=== PATIENT | male | born 1960 | race Caucasian/White ===

== ENCOUNTER → 2018-06-12 07:26 | Outpatient (CLI) | payer OTHER, SELFPAY ==
--- NOTE | 2018-06-12 | DI.MRI.S_ITS ---
PROCEDURE: MR SHOULDER RT WO/W CON INDICATIONS: Localized swelling, mass and lump TECHNIQUE: Noncontrast oblique coronal T1 spin echo and T2 fast spin echo with fat saturation, oblique sagittal T1 spin echo and T2 fast spin echo with fat saturation, axial T1 spin echo and T2 fast spin echo with fat saturation through the shoulder. Post-contrast oblique coronal, oblique sagittal, and axial T1 spin echo with fat saturation through the shoulder. COMPARISON: None. FINDINGS: Image quality: Excellent. Rotator cuff: There is tendinosis and moderate grade articular surface partial thickness tear involving distal supraspinatus at its insertion on humeral head extending to the musculotendinous junction with focal full-thickness perforation involving most anterior fibers of the distal supraspinatus at its insertion with minimal 4 mm medial retraction of torn tendon fibers. Tendinosis and low-grade bursal surface partial-thickness tear involving distal subscapularis. Distal infraspinatus tendinosis is also seen. Sagittal images demonsterate mild supraspinatus muscle atrophy. Bones and bursae: No suspicious bone marrow enhancement. Mild to moderate acromioclavicular joint and glenohumeral joint osteoarthritis is seen. Small amount of glenohumeral joint effusion and subacromial subdeltoid bursal fluid is seen. Capsule and soft tissues: No suspicious soft tissue enhancement. In the absence of intra-articular contrast, there is suggestion of superior anterior labral tear at 12 to 2:00 position. There is also suggestion of inferior labral tear at 5 to 6:00 position. The glenohumeral ligaments appear intact. The long head of the biceps tendon demonstrates normal location and morphology. The rotator interval appears normal, without fibrosis. The coracohumeral ligament is normal in thickness. IMPRESSION: 1. Tendinosis and moderately articular surface partial-thickness tear involving distal supraspinatus with focal full-thickness perforation at most anterior fibers of the distal supraspinatus at its insertion on humeral head. Tendinosis and low to moderate grade bursal surface partial-thickness involving distal infraspinatus. This is subscapularis tendinosis. Mild supraspinatus muscle atrophy. 2. Mild to moderate acromioclavicular joint and glenohumeral joint osteoarthritis. 3. Finding is suggestive of superior anterior labral tear from 12 to 2:00 position an anterior inferior labral tear for 5 to 6:00 position. 4. No discrete enhancing soft tissue mass or fluid collection is seen. No intraosseous enhancement. Dictated by: Joesph Garcia M.D. on 06/12/2018 at 12:51 Approved by: Joesph Garcia M.D. on 06/12/2018 at 13:01
== END ==
PROVIDERS: PCP Nurse Practitioner Family; Visit Provider Orthopaedic Surgery
DX: R22.31 Localized swelling, mass and lump, right upper limb (principal); M75.111 Incomplete rotator cuff tear or rupture of right shoulder, not specified as traumatic; M19.011 Primary osteoarthritis, right shoulder
CPT/HCPCS: 73223

== ENCOUNTER → 2018-07-10 09:19 | Outpatient (CLI) | payer OTHER, SELFPAY ==
--- NOTE | 2018-07-10 | DI.MRI.S_ITS ---
PROCEDURE: MR CERVICAL SPINE WO CON INDICATIONS: Cervicalgia TECHNIQUE: Noncontrast sagittal T1 spin echo and T2 fast spin echo, sagittal STIR, foraminal oblique sagittal T2 fast spin echo, and axial gradient echo or T2 fast spin echo through the cervical spine. COMPARISON: None. FINDINGS: Image quality: Excellent. Alignment and Curvature: There is overall straightening of the normal cervical curvature. There is trace retrolisthesis of C5 on C6, trace anterolisthesis of C6 on C7, C7 on T1, T1 on T2. Bone Marrow: Marrow demonstrates normal overall signal. Spinal Cord: Visualized spinal cord has normal size and signal. No cerebellar tonsillar herniation. Paraspinous Soft Tissues: No paravertebral masses. Prevertebral soft tissues are normal in thickness. Discs: Moderate to severe desiccation is present at C5-6 and C6-7, mild throughout the remainder of the cervical spine. C2-C3: No disc bulge, spinal stenosis or foraminal narrowing. C3-C4: I'll disc bulge including a left foraminal component. There are is minimal bilateral foraminal narrowing. C4-C5: Mild disc bulge including a posterior central protrusion with mild spinal stenosis. Minimal left foraminal narrowing. C5-C6: Mild disc bulge including asymmetric extension into the left lateral recess/proximal left neural foramina. Mild to moderate spinal stenosis is moderate left and minimal right foraminal narrowing. C6-C7: Mild disc bulge with mild to moderate spinal stenosis. Mild left foraminal narrowing. C7-T1: No disc bulge, spinal stenosis or foraminal narrowing. IMPRESSION: 1. Multilevel disc bulges. 2. Mild/moderate stenosis predominantly secondary to disc bulges with contributing effect of cervical straightening. 3. Multilevel foraminal narrowing most notable at C5-6. Dictated by: Suzy Rodrigues M.D. on 07/10/2018 at 15:24 Approved by: Suzy Rodrigues M.D. on 07/10/2018 at 15:37
== END ==
PROVIDERS: PCP Nurse Practitioner Family; Visit Provider Orthopaedic Surgery
DX: M54.2 Cervicalgia (principal); M25.511 Pain in right shoulder; M50.21 Other cervical disc displacement, high cervical region; M48.02 Spinal stenosis, cervical region
CPT/HCPCS: 72141

== ENCOUNTER → 2018-10-09 07:51 | Outpatient (CLI) | payer OTHER, SELFPAY ==
--- NOTE | 2018-10-09 | DI.ECHO.S_ITS ---
[facility]---------+ [facility] +---------+ : : [address] : [address] [address] : : : : [id number] : : : : Phone: [phone]+ Echocardiogram Report + + :Name: CARMEL GARCIA Study Date: 10/09/2018 Height: 70 in : :[facility] Weight: 204 lb : : Gender: Male BSA: 2.1 m2 : :: 1960 Age: 57 yrs BP: 122/68 mmHg: :Reason For Study: Chest pain : : Performed By: Sayda Acharya : :Referring: UNSPECIFIED : + + Interpretation Summary Normal both left and right ventricle size and function. The ejection fraction is 60-65%. No valvular abnormality. Mildly enlarged ascending aorta. Procedure: A two-dimensional transthoracic echocardiogram with color flow and Doppler was performed. The study quality was technically good. There is no prior echocardiogram noted for this patient. The patient was in normal sinus rhythm during the exam. Left Ventricle: The left ventricle is normal in size, wall thickness, and systolic function without any focal wall motion abnormalities. The ejection fraction is estimated to be 60-65%. Diastolic parameters suggest probable normal left ventricular diastolic function and normal filling pressures. Right Ventricle: The right ventricle grossly appears normal in size with probable normal systolic function. Atria: The left atrial size is normal. Right atrial size is normal. The interatrial septum is intact with no evidence for an atrial septal defect. Mitral Valve: The mitral valve is normal in structure and function. There is no mitral regurgitation noted. Aortic Valve: The aortic valve opens well. No aortic regurgitation is present. Tricuspid Valve: The tricuspid valve is normal in structure and function. There is trace tricuspid regurgitation. The right ventricular systolic pressure is estimated to be at least 23 mmHg based on an estimated right atrial pressure of 3 mm Hg. Pulmonic Valve: The pulmonic valve is not well seen, but is grossly normal. There is trace pulmonic regurgitation. Great Vessels: The aortic root is normal size. The ascending aorta is mildly enlarged. The aortic arch is normal in size. The IVC is of normal diameter and collapses greater than 50% with a sniff. This suggests a low right atrial pressure of 3 mm Hg. Pericardium/ Pleura There is no pericardial effusion. There is no pleural effusion. MMode/2D Measurements & Calculations LVIDd: 5.1 cm Ao root diam: 3.6 cm LVIDs: 3.1 cm Aortic Jxn: 2.7 cm FS: 38.4 % asc Aorta Diam: 3.8 cm EPSS: 0.26 cm Ao Arch Diam (Prox Trans): 2.9 cm IVSd: 1.2 cm LVPWd: 0.93 cm LV draper. diameter/BSA (cm/m^2): 2.4 LV sys. diameter/BSA (cm/m^2): 1.5 LA dimension: 4.0 cm RA long axis: 4.8 cm LA A2 area: 24.2 cm2 RA area: 18.4 cm2 LA A4 area: 18.6 cm2 RA vol: 59.7 ml LA length (vol): 5.4 cm RA : 28.4 ml/m2 LA vol: 70.6 ml IVC diam: 1.8 cm LA vol index: 33.6 ml/m2 RVDd major: 6.5 cm RVD1 (basal): 4.2 cm RVD2 (mid): 3.4 cm Doppler Measurements & Calculations Ao V2 max: 146.2 cm/sec MV E max felipe: 75.3 cm/sec Ao V2 mean: 96.2 cm/sec MV A max felipe: 55.6 cm/sec Ao max P.5 mmHg MV E/A: 1.4 Ao mean P.3 mmHg Med Peak E' Felipe: 7.4 cm/sec Ao V2 VTI: 30.9 cm E/E' med: 10.2 Lat Peak E' Felipe: 12.6 cm/sec E/E' lat: 6.0 E/e' average: 8.1 MV dec time: 0.24 sec MV P1/2t: 70.8 msec TR max felipe: 222.8 cm/sec MV P1/2t max felipe: 75.0 cm/sec TR max P.9 mmHg MVA(P1/2t): 3.1 cm2 PA V2 max: 110.0 cm/sec PA V2 mean: 73.3 cm/sec PA mean P.5 mmHg PA Accel Time: 0.13 sec Electronically signed by: Patience Fernandez on Reading Physician:10/09/2018 01:17 PM
== END ==
PROVIDERS: PCP Nurse Practitioner Family; Visit Provider Nurse Practitioner Family
DX: R07.9 Chest pain, unspecified (principal); I77.89 Other specified disorders of arteries and arterioles
CPT/HCPCS: 93306

== ENCOUNTER → 2019-06-11 08:15 | Outpatient (CLI) | payer OTHER, SELFPAY ==
--- NOTE | 2019-06-11 | DI.RAD.S_ITS ---
PROCEDURE: FL SHOULDER INJECTION MR/CT LT INDICATIONS: LEFT SHOULDER PAIN TECHNIQUE: The indications, alternatives, benefits, risks, and complications of the procedure were explained to the patient. Written informed consent was obtained and placed in the chart. The shoulder was examined fluoroscopically and a site for needle placement chosen for entry into the glenohumeral joint from an anterior approach. The skin was prepped and draped in a sterile fashion, and 1% lidocaine infiltrated from skin down to joint capsule. A spinal needle was inserted into the glenohumeral joint, and a small amount of iodinated contrast media injected to confirm intra-articular placement of the needle tip. This was followed by approximately 12 mL dilute solution of a gadolinium containing MR contrast agent. The needle was removed and a dressing was applied. The patient was given postprocedural instructions and sent to the MR suite for MR imaging. FINDINGS: A single fluoroscopic spot image demonstrates intra-articular location of injected iodinated contrast. IMPRESSION: Successful fluoroscopically guided administration of dilute Gadolinium solution into the left shoulder joint for MR arthrogram. Dictated by: Roman Coles M.D. on 06/11/2019 at 9:34 Approved by: Roman Coles M.D. on 06/11/2019 at 9:35
--- NOTE | 2019-06-11 | DI.MRI.S_ITS ---
PROCEDURE: MR SHOULDER LT W CON INDICATIONS: LEFT SHOULDER PAIN TECHNIQUE: After the administration of 12 mL of dilute intra-articular Gadolinium contrast, oblique coronal T1 and T2 spin echo with fat saturation, oblique sagittal T1 spin echo with and without fat saturation, oblique sagittal T2 fast spin echo with fat saturation, axial T1 spin echo with fat saturation through the shoulder. COMPARISON: None. FINDINGS: Image quality: Excellent. Rotator cuff: The supraspinatus, infraspinatus, and subscapularis tendons appear intact throughout. There is mild thickening with increased internal signal involving the supraspinatus and subscapularis tendons compatible with mild tendinosis. No rotator cuff muscle atrophy on sagittal images. Bones and bursae: No bone marrow contusions or fractures. Mild acromioclavicular joint osteoarthritic degeneration. The acromion demonstrates conventional anatomy, without an os acromiale. Fluid noted in the subacromial/subdeltoid bursa compatible with mild bursitis. Capsule and soft tissues: There is a large tear involving the superior, anterior and posterior labrum extending from the 2:00 to 9:00 position. The glenohumeral ligaments appear intact. The long head of the biceps tendon demonstrates normal location and morphology. The rotator interval appears normal, without fibrosis. The coracohumeral ligament is of normal thickness. No intra-articular bodies. IMPRESSION: 1. Large labral tear involving the superior, anterior and posterior labrum from 2:00 to 9:00. 2. Mild supraspinatus and subscapularis tendinopathy. 3. Mild subacromial/subdeltoid bursitis. 4. Mild acromioclavicular joint osteoarthritis. Dictated by: Deysi Ernandez MD, PhD on 06/11/2019 at 12:22 Approved by: Deysi Ernandez MD, PhD on 06/12/2019 at 13:07
== END ==
PROVIDERS: PCP Nurse Practitioner Family; Referring Provider Orthopaedic Surgery; Visit Provider Orthopaedic Surgery
DX: M25.512 Pain in left shoulder (principal); S43.432A Superior glenoid labrum lesion of left shoulder, initial encounter; M19.012 Primary osteoarthritis, left shoulder; M75.52 Bursitis of left shoulder
CPT/HCPCS: 23350; 73222; 77002

== ENCOUNTER → 2019-06-18 08:27 | Outpatient (CLI) | payer OTHER, SELFPAY ==
--- NOTE | 2019-06-18 | DI.MRI.S_ITS ---
PROCEDURE: MR SHOULDER RT W CON INDICATIONS: Pain in right shoulder TECHNIQUE: After the administration of 12 mL of dilute intra-articular Gadolinium contrast, oblique coronal T1 and T2 spin echo with fat saturation, oblique sagittal T1 spin echo with and without fat saturation, oblique sagittal T2 fast spin echo with fat saturation, axial T1 spin echo with fat saturation through the shoulder. COMPARISON: None. FINDINGS: Image quality: Excellent. Rotator cuff: There is a high-grade, partial, tear of the supraspinous tendon at the humeral attachment. Multiloculated ganglion cyst seen tracking along the superior margin of the supraspinous tendon. The infraspinatus, and subscapularis tendons appear intact throughout. Mild thickening and slightly increased internal signal noted in the infraspinatus and supraspinatus tendons compatible with mild tendinosis. No rotator cuff muscle atrophy on sagittal images. Bones and bursae: No bone marrow contusions or fractures. Minimal acromioclavicular joint osteoarthritic degeneration. The acromion demonstrates conventional anatomy, without an os acromiale. Fluid is noted in the subacromial/subdeltoid bursa compatible with mild bursitis. Capsule and soft tissues: There is a large tear involving the superior and anterior-superior labrum (10:00-1:00 position). The glenohumeral ligaments appear intact. The long head of the biceps tendon demonstrates normal location and morphology. The rotator interval appears normal, without fibrosis. The coracohumeral ligament is of normal thickness. No intra-articular bodies. No evidence of synovitis. IMPRESSION: 1. Large superior/anterior-superior labral tear. 2. High-grade, partial supraspinatus tendon tear. 3. Mild infraspinatus and subscapularis tendinopathy. Dictated by: Deysi Ernandez MD, PhD on 06/18/2019 at 10:59 Approved by: Deysi Ernandez MD, PhD on 06/19/2019 at 9:59
--- NOTE | 2019-06-18 | DI.RAD.S_ITS ---
PROCEDURE: FL SHOULDER INJECTION MR/CT RT INDICATIONS: Pain in right shoulder TECHNIQUE: The indications, alternatives, benefits, risks, and complications of the procedure were explained to the patient. Written informed consent was obtained and placed in the chart. The shoulder was examined fluoroscopically and a site for needle placement chosen for entry into the glenohumeral joint from an anterior approach. The skin was prepped and draped in a sterile fashion, and 1% lidocaine infiltrated from skin down to joint capsule. A spinal needle was inserted into the glenohumeral joint, and a small amount of iodinated contrast media injected to confirm intra-articular placement of the needle tip. This was followed by approximately 12 mL dilute solution of a gadolinium containing MR contrast agent. The needle was removed and a dressing was applied. The patient was given postprocedural instructions and sent to the MR suite for MR imaging. FINDINGS: A single fluoroscopic spot image demonstrates intra-articular location of injected iodinated contrast. IMPRESSION: Successful fluoroscopically guided administration of dilute Gadolinium solution into the shoulder joint for MR arthrogram. Dictated by: Jovi Medeiros M.D. on 06/18/2019 at 10:54 Approved by: Jovi Medeiros M.D. on 06/18/2019 at 10:54
== END ==
PROVIDERS: PCP Nurse Practitioner Family; Referring Provider Orthopaedic Surgery; Visit Provider Orthopaedic Surgery
DX: M25.511 Pain in right shoulder (principal); M75.111 Incomplete rotator cuff tear or rupture of right shoulder, not specified as traumatic; S43.431A Superior glenoid labrum lesion of right shoulder, initial encounter; M67.411 Ganglion, right shoulder
CPT/HCPCS: 23350; 73222; 77002

== ENCOUNTER → 2023-01-24 10:59 | Outpatient (CLI) | payer OTHER, SELFPAY ==
--- NOTE | 2023-01-24 | DI.MRI.S_ITS ---
PROCEDURE: MR HIP RT WO CON INDICATIONS: Pain in right hip TECHNIQUE: Noncontrast coronal T1 spin echo and STIR through the bony pelvis. Coronal and axial T2 fast spin echo with fat saturation, sagittal T1 spin echo, and oblique axial T2 fast spin echo with fat saturation through the hip. COMPARISON: None. FINDINGS: Image quality: Excellent. Bones and joints: Bone marrow of the pelvic ring and proximal femurs show normal signal throughout. No intraosseous lesions or fractures. No avascular necrosis of the femoral heads. The visualized lower lumbar spine appears normally aligned. There is a small subchondral cyst involving the right femoral neck. Tendons and ligaments: The gluteus medius and minimus tendons appear intact, without associated muscle atrophy. The nearby proximal iliotibial band also appears intact. The iliopsoas tendon appears intact, without adjacent bursal fluid collections or evidence for impingement syndrome. The origin of the hamstring tendon is intact at the ischial tuberosity, as well as the associated sacrotuberous ligament. The straight and reflected heads of the rectus femoris muscle origin appear intact, as well as the conjoint tendon. The ligamentum teres appears intact where visualized. There is no findings of trochanteric bursitis. Labrum and cartilage: The acetabular labrum appears intact in the absence of intra-articular contrast. Cartilage surface of the femoral head appears of normal thickness. The alpha angle of the femur is greater than 55?. No paralabral cyst formation is identified. Soft tissues: Visualized muscles demonstrate normal bulk and internal signal. Quadratus femoris muscle demonstrates no internal edema to suggest ischiofemoral impingement. The proximal sciatic neurovascular bundle appears normal adjacent to the hamstring tendons. No free pelvic fluid. Bladder wall thickness is normal. Genitourinary structures and bowel loops appear normal where visualized. IMPRESSION: 1. 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 and small subchondral cyst formation involving the anterolateral femoral neck. Dictated by: Parrish Viveros M.D. on 01/25/2023 at 8:09 Approved by: Parrish Viveros M.D. on 01/25/2023 at 8:18
== END ==
PROVIDERS: PCP Nurse Practitioner Family; Referring Provider Orthopaedic Surgery; Visit Provider Orthopaedic Surgery
DX: M25.551 Pain in right hip (principal); M85.48 Solitary bone cyst, other site
CPT/HCPCS: 73721

== ENCOUNTER 2023-04-22 14:14 | Emergency (ER) | payer OTHER, SELFPAY ==
[2023-04-22] VITALS (10 sets, daily range): BP systolic 135–152; BP diastolic 67–77; PULSE 59–71; RESP 18–31; TEMP 36.6–37; O2SAT 91–98; BMI 29.8
--- NOTE | 2023-04-22 14:38 | DI.RAD.S_ITS ---
PROCEDURE: XR CHEST 1V INDICATIONS: short of breath TECHNIQUE: One view of the chest was acquired. COMPARISON: None. FINDINGS: Surgical changes and devices: None. Lungs and pleura: Lungs are clear. No pleural effusions or pneumothorax. Mediastinum: Mediastinal contours appear normal. Heart size is normal. Bones and chest wall: No suspicious bony lesions. Overlying soft tissues appear unremarkable. IMPRESSION: No acute cardiopulmonary abnormality is seen. Dictated by: Wade Chu M.D. on 04/22/2023 at 15:56 Approved by: Wade Chu M.D. on 04/22/2023 at 15:56
[2023-04-22 14:53] LABS: Add Manual Diff / Slide Review NO; Basophils Absolute Auto 100 /uL (0-100); Eosinophils Absolute Auto 300 /uL (0-450); Eosinophils Percent Auto 4.3 % (2-4); Hemoglobin 13.9 g/dL (13.5-17.5); Lymphocytes Absolute Auto 1600 /uL (1100-4500); Lymphocytes Percent Auto 21.3 % (25-40); Mean Corpuscular HGB Conc 34.8 % (30-36); Mean Corpuscular Volume 86.1 fL (80-100); Monocytes Absolute Auto 800 /uL (0-900); Neutrophils Absolute Auto 4600 /uL (1500-7000); Neutrophils Percent Auto 62.4 % (50-75); Platelet Count 264 X10^3/uL (150-400); Red Blood Cell Count 4.64 X10^6/uL (4.5-5.9); White Blood Cell Count 7.4 X10^3/uL (4.5-11.0)
[2023-04-22 14:55] LABS: Alanine Aminotransferase 29 IU/L (<50); Albumin 4.3 g/dL (3.5-5.0); Albumin Globulin Ratio 1.3 (1.0-2.8); Alkaline Phosphatase 58 U/L (38-126); Aspartate Aminotransferase 29 IU/L (17-59); BUN Creatinine Ratio 22.4 (6-22); Bilirubin Total 0.5 mg/dL (0.2-1.3); Blood Urea Nitrogen 19 mg/dL (9-20); Calcium 9.4 mg/dL (8.4-10.2); Carbon Dioxide 27 mmol/L (22-32); Chloride 106 mmol/L (98-107); Creatine Kinase 89 U/L (55-170); Estimated Glomerular Filt Rate > 60 mL/min (>60); Globulin 3.4 g/dL (1.7-4.1); Glucose 97 mg/dL (80-110); HEMOLYSIS < 15 (0-50); Lipase 69 U/L (23-300); Sodium 140 mmol/L (137-145); Total Protein 7.7 g/dL (6.3-8.2)
[2023-04-22 15:07] LABS: NT-proBNP (BNP-Adult 18+) 142 pg/mL (<125); Troponin I < 0.012 ng/mL (0.01-0.034)
[2023-04-22 15:55] LABS: Influenza A - CEPHEID Flu A NEGATIVE (NEGATIVE); Influenza B - CEPHEID Flu B NEGATIVE (NEGATIVE); Respiratory Syncytial Virus Negative (Negative)
[2023-04-22 16:06] LABS: COVID-19 CEPHEID 4-PLEX PCR Negative (Negative)
--- NOTE | 2023-04-22 16:42 | ED.SOB ---
HPI - SOB/Dyspnea General Chief Complaint: Shortness of Breath/Dyspnea Stated Complaint: difficulty breathing Time Seen by Provider: 04/22/23 14:38 Source: patient Mode of arrival: Ambulatory Limitations: no limitations History of Present Illness HPI Narrative: Patient is a 62-year-old male history of atrial fibrillation on Eliquis presenting today with increasing shortness of breath. He reports that over the last 2 days he has had some upper respiratory like symptoms sore throat mild body aches no actual fever and he is noted increasing shortness of breath exertion. He denies any lower extremity edema no orthopnea. He has not traveled anywhere recently. He is coughing up some phlegm. He has had colds before but never been this short of breath. He reports a 20 pack-year smoking history but quit in 2009 Exam Initial Vital Signs Initial Vital Signs: Vital Signs Temperature 97.9 F 04/22/23 14:25 Pulse Rate 66 04/22/23 14:25 Respiratory Rate 20 04/22/23 14:25 Blood Pressure 152/72 H 04/22/23 14:25 Pulse Oximetry 98 04/22/23 14:25 Oxygen Delivery Method Room Air 04/22/23 14:25 GENERAL: Alert 62-year-old male appears well and in no acute distress. HEENT: Head atraumatic,EOMI, pupils reactive, face symmetric, moist mucous membranes CARDIOVASCULAR: Regular rate and rhythm without murmurs, rubs or gallops. RESPIRATORY: No conversational dyspnea decreased breath sounds bilaterally ABDOMEN: Soft, nontender. Normoactive bowel sounds all 4 quadrants. No guarding or rebound. EXTREMITIES: Normal range of motion, no clubbing or edema. Neurovascularly intact NEUROLOGICAL: Alert and oriented x4.Normal gait and speech. SKIN: Warm, dry, no laceration, no petechiae, no rashes or lesions. Course Orders Ordered: ED Orders 04/22/23 14:36 Complete Blood Count AUTO DIFF Stat Comprehensive Metabolic Panel Stat Lipase Stat NT-proBNP (BNP-Adult 18+) Stat Troponin & CK Cardiac Panel Stat EKG-12 Lead Stat 04/22/23 14:38 XR chest 1V Stat 04/22/23 15:05 Covid-19 + FLU A/B + RSV - PCR Stat Discontinued Medications Albuterol/Ipratropium (Albuterol/Ipratropium 3 Ml Ampul) 3 ml INH NOW ONE Stop: 04/22/23 16:44 Last Admin: 04/22/23 17:30 Dose: 3 ml Documented By: NL Vital Signs Vital signs: Vital Signs - 8 hr 04/22/23 14:25 04/22/23 15:21 04/22/23 15:30 Temperature 97.9 F Pulse Rate 66 61 Respiratory Rate 20 23 Blood Pressure 152/72 H 136/67 Pulse Oximetry 98 94 Oxygen Delivery Method Room Air 04/22/23 15:30 04/22/23 16:00 04/22/23 16:00 Temperature Pulse Rate 60 59 L Respiratory Rate 23 23 Blood Pressure 147/68 H Pulse Oximetry 93 93 Oxygen Delivery Method 04/22/23 16:30 04/22/23 16:30 04/22/23 17:00 Temperature Pulse Rate 59 L 60 Respiratory Rate 22 21 Blood Pressure 135/68 Pulse Oximetry 94 94 Oxygen Delivery Method 04/22/23 17:30 04/22/23 17:30 04/22/23 17:31 Temperature Pulse Rate 62 61 Respiratory Rate 26 H 26 H Blood Pressure 143/68 H Pulse Oximetry 97 94 Oxygen Delivery Method Room Air 04/22/23 17:31 04/22/23 18:00 04/22/23 18:00 Temperature Pulse Rate 60 69 Respiratory Rate 31 H 18 Blood Pressure 137/77 Pulse Oximetry 95 91 Oxygen Delivery Method 04/22/23 18:13 Temperature 98.6 F Pulse Rate 71 Respiratory Rate 21 Blood Pressure 137/77 Pulse Oximetry 98 Oxygen Delivery Method Room Air MDM - SOB/Dyspnea Lab Data 04/22/23 14:36 04/22/23 14:36 Labs: Lab Results 04/22/23 04/22/23 Range/Units 14:36 15:05 WBC 7.4 (4.5-11.0) X10^3/uL RBC 4.64 (4.5-5.9) X10^6/uL Hgb 13.9 (13.5-17.5) g/dL Hct 40.0 L (41-53) % MCV 86.1 (80-100) fL MCH 30.0 (26-34) PG MCHC 34.8 (30-36) % RDW 13.0 (11.6-14.8) % Plt Count 264 (150-400) X10^3/uL Neut % (Auto) 62.4 (50-75) % Lymph % (Auto) 21.3 L (25-40) % Snyder % (Auto) 11.0 (3-14) % Eos % (Auto) 4.3 H (2-4) % Baso % (Auto) 1.0 (0-2) % Neut # (Auto) 4600 (4733-1859) /uL Lymph # (Auto) 1600 (3498-2419) /uL Snyder # (Auto) 800 (0-900) /uL Eos # (Auto) 300 (0-450) /uL Baso # (Auto) 100 (0-100) /uL Sodium 140 (137-145) mmol/L Potassium 4.0 (3.4-5.1) mmol/L Chloride 106 (98-107) mmol/L Carbon Dioxide 27 (22-32) mmol/L BUN 19 (9-20) mg/dL Creatinine 0.85 (0.66-1.25) mg/dL Estimated GFR > 60 (>60) mL/min BUN/Creatinine Ratio 22.4 H (6-22) Glucose 97 (80-110) mg/dL Calcium 9.4 (8.4-10.2) mg/dL Total Bilirubin 0.5 (0.2-1.3) mg/dL AST 29 (17-59) IU/L ALT 29 (<50) IU/L Alkaline Phosphatase 58 (38-126) U/L Total Creatine Kinase 89 (55-170) U/L Troponin I < 0.012 (0.01-0.034) ng/mL NT-Pro-B Natriuret Pep 142 H (<125) pg/mL Total Protein 7.7 (6.3-8.2) g/dL Albumin 4.3 (3.5-5.0) g/dL Globulin 3.4 (1.7-4.1) g/dL Albumin/Globulin Ratio 1.3 (1.0-2.8) Lipase 69 (23-300) U/L SARS-CoV-2 (PCR) Negative (Negative) Influenza A (RT-PCR) Flu a negative (NEGATIVE) Influenza B (RT-PCR) Flu b negative (NEGATIVE) RSV (PCR) Negative (Negative) Imaging Data Chest x-ray: Radiologist's Impression: PROCEDURE: XR CHEST 1V INDICATIONS: short of breath TECHNIQUE: One view of the chest was acquired. COMPARISON: None. FINDINGS: Surgical changes and devices: None. Lungs and pleura: Lungs are clear. No pleural effusions or pneumothorax. Mediastinum: Mediastinal contours appear normal. Heart size is normal. Bones and chest wall: No suspicious bony lesions. Overlying soft tissues appear unremarkable. IMPRESSION: No acute cardiopulmonary abnormality is seen. Dictated by: Wade Chu M.D. on 04/22/2023 at 15:56 ECG Data Interpretation: Normal sinus rhythm rate 58 MD interval 170 QRS 96 QTC 392 T-wave inversion noted in lead [address] changes MDM Narrative Medical decision making narrative: Patient 62-year-old male remote history of smoking presents today with a respiratory like symptoms increasing shortness of breath with exertion. He is sore throat mild body aches but overall does not appear acutely toxic or ill. He is mildly decreased breath sounds bilaterally Blood work has been reviewed he has no leukocytosis or anemia. No evidence of congestive heart failure negative troponin. Viral panel also negative for COVID influenza and RSV Chest x-ray has been reviewed he has no pneumonia Patient had an albuterol neb for some decreased breath sounds and history of smoking did not seem to help much At this time patient's respiratory infection no need for antibiotics Discharge Plan Departure Patient Disposition: Home Clinical Impression: Upper respiratory infection Instructions: DI for Viral Upper Respiratory Infection -- Adult Activity Restrictions/Additional Instructions: *You have been diagnosed with upper respiratory infection *What to do: At this time no need for antibiotics COVID influenza and RSV are negative. I hope that you feel better soon *Continue to take medications as directed *Follow up with your primary care provider in 2-3 days or call [phone] *Return to ER if you should have increasing shortness of breath chest or any new, worsening or concerning symptoms Referrals: Brinda Carmona ARNP [Primary Care Provider] - Stand Alone Forms: Patient Portal/API
[2023-04-22] MEDS: ALBUTEROL/IPRATROPIUM 3 ML AMPUL INH (17:30)
--- NOTE | 2023-04-22 17:40 | RT ---
pt kenney mejia well, on room air with no distress noted
== END 2023-04-22 18:14 | disposition home or self-care (01) ==
PROVIDERS: Emergency Provider Emergency Medicine; PCP Nurse Practitioner Family
DX: J06.9 Acute upper respiratory infection, unspecified (principal); Z20.822 Contact with and (suspected) exposure to COVID-19
CPT/HCPCS: 0241U; 36415; 71045; 80053; 82550; 83690; 83880; 84484; 85025; 93005; 94640; 99284

== ENCOUNTER 2023-05-23 12:46 | Day surgery (SDC) | payer OTHER, SELFPAY ==
--- NOTE | 2023-05-23 | PATH_ITS ---
[facility] Accession Number: [id number] No. of containers..03 Tissue . 01 Material submitted: . PART A: stomach - ANTRUM PART B: stomach - GASTRIC BODY PART C: esophagus, E-G Junction - GE JUNCTION . 01 Diagnosis: Part A: ANTRUM: Gastric mucosa with mild chronic inflammation. No Helicobacter organisms identified. No intestinal metaplasia, dysplasia, or malignancy identified. . Part B: GASTRIC BODY: Gastric mucosa with mild chronic inflammation and features of reactive gastropathy. No Helicobacter organisms identified. No intestinal metaplasia, dysplasia, or malignancy identified. See comment. . Specimen Comments: These changes can be seen in a variety of settings, such as with non-steroidal anti-inflammatory drugs (NSAIDs), bile reflux, or adjacent to an ulcer or erosion. . Part C: GE JUNCTION: Gastroesophageal junction mucosa with mild chronic inflammation. No goblet cell metaplasia, dysplasia, or malignancy identified. [facility] 05/27/2023 1450 Local . 01 Comment: Parts A, B: An immunohistochemical stain was performed to evaluate for Helicobacter organisms and is negative. The control stains appropriately. * This test was developed and its performance characteristics determined by [facility]. It has not been cleared or approved by the U.S. Food and Drug Administration. The FDA has determined that such clearance or approval is not necessary. This test is used for clinical purposes. It should not be regarded as investigational or for research. . Part C: An ABPAS stain was performed to evaluate for goblet cell metaplasia, and is negative. The control stains appropriately. . 01 Electronically signed: . Anand Elliott MD, Pathologist NPI- [id number] . 01 Gross description: . Part A: ANTRUM: Received in formalin are 4 fragment(s) of langley, soft tissue measuring 0.1 x 0.1 x 0.1 cm to 0.2 x 0.2 x 0.2 cm submitted entirely in 1 cassette(s) . Part B: GASTRIC BODY: Received in formalin are 3 fragment(s) of langley, soft tissue measuring 0.2 x 0.2 x 0.2 cm to 0.3 x 0.3 x 0.3 cm submitted entirely in 1 cassette(s) . Part C: GE JUNCTION: Received in formalin are 3 fragment(s) of langley, soft tissue measuring 0.1 x 0.1 x 0.1 cm to 0.3 x 0.3 x 0.2 cm submitted entirely in 1 cassette(s) /[facility] 05/27/2023 1450 Local . 01 Pathologist provided ICD-10: K20.90, K29.50, K29.60 . 01 CPT . 792928, 457232, 433583, 299218, Y20502 Specimen Comment: A courtesy copy of this report has been sent to [phone] Performed at: 01 [facility] [address] [place] [address] [address] [facility], [place], [place] [id number] MD Anand Elliott MD Phone: [phone]
[2023-05-23 11:08] VITALS: BP 143/85; PULSE 73; RESP 16; TEMP 36.5; O2SAT 98
[2023-05-23] MEDS: LACTATED RINGERS 1,000 ML 42 ML IV (11:26)
--- NOTE | 2023-05-23 12:00 | P.HP_ITS ---
History of Present Illness History of Present Illness Date Patient Seen: 05/23/23 Time Patient Seen: 12:00 Chief complaint: EGD & Colonoscopy Narrative: Samson English a 62-year-old man who is here for an EGD and colonoscopy. He had an EGD with Dr. Waterman in 2017 and erosive esophagitis was found. He continues to have symptoms of reflux with frequent eructation. He had a colonoscopy attempted more recently at [facility] but it was not completed. No family history of colon cancer. He does take Eliquis for atrial fibrillation and has not held it. [facility] Medical History (Updated 05/23/23 @ 12:01 by Lupillo Barger MD) Colonoscopy planned Anxiety Femoral acetabular impingement Tinnitus Hyperlipidemia Opioid use Meralgia paresthetica HTN (hypertension) GERD (gastroesophageal reflux disease) Surgical History (Updated 05/23/23 @ 10:44 by Chiara Rowe RN) History of esophagogastroduodenoscopy (EGD) Social History Smoking Status: Former smoker alcohol intake: never Meds Home Medications and Allergies Home Medications Medication Instructions Recorded Confirmed Type apixaban 5 mg tablet (Eliquis) 5 mg PO BID 05/23/23 05/23/23 History cetirizine 10 mg tablet 10 mg PO DAILY 05/23/23 05/23/23 History cyclobenzaprine 10 mg tablet 10 mg PO ONCE PM 05/23/23 05/23/23 History lisinopril 10 mg tablet 10 mg PO DAILY 05/23/23 05/23/23 History metoprolol succinate 25 mg 25 mg PO DAILY 05/23/23 05/23/23 History tablet,extended release 24 hr pantoprazole 40 mg tablet,delayed 40 mg PO BID 05/23/23 05/23/23 History release prazosin 1 mg capsule 1 mg PO ONCE PM 05/23/23 05/23/23 History simvastatin 20 mg tablet 20 mg PO ONCE PM 05/23/23 05/23/23 History trazodone 100 mg tablet 100 mg PO ONCE PM 05/23/23 05/23/23 History Allergies Allergy/AdvReac Type Severity Reaction Status Date / Time No Known Drug Allergies Allergy Verified 05/23/23 10:44 Exam Vital Signs (past 8 hours): - 05/23/23 11:08 Temperature 97.7 F Pulse Rate 73 Respiratory Rate 16 Blood Pressure 143/85 H Pulse Oximetry 98 Oxygen Delivery Method Room Air Oxygen Delivery Method Room Air Const General: healthy appearing Assessment & Plan Assessment and plan (1) Esophagitis: Status: Acute (2) Colon cancer screening: Status: Acute Plan We reviewed the risks and benefits of EGD and colonoscopy for a history of esophagitis and for colon cancer screening and he would like to proceed.
--- NOTE | 2023-05-23 12:40 | PM.OP.EC ---
Operative Date/Time/Diagnoses Date of procedure: 05/23/23 Time of procedure: 12:40 Pre-op diagnosis: Reflux and colon cancer screening Post-op diagnosis: same Procedure & Clinicians Study performed: EGD and colonoscopy Same procedure as scheduled: Yes Surgeon: Lupillo Barger Procedure Notes Procedure in detail: Surgeon: Lupillo Barger MD Anesthesia: Emelina Godfrey CRNA Procedure in detail: A timeout was performed. A bite blocked was placed and monitors were attached to the patient. The patient was positioned in the left lateral decubitus position. Sedation was administered. Once the patient was sedated the endoscope was inserted through the bite block and passed through the esophagus and stomach and into the duodenum. No abnormalities were seen in the duodenal. We then withdrew the scope into the stomach. There was mild antritis and random biopsies were taken from the antrum with cold forceps. There was also a small patch gastritis in the mid body of the stomach with a petechial pattern. Random biopsies were taken with cold forceps. The endoscope was retroflexed and a small hiatal hernia was noted. The endoscope was straightned and withdrawn into the esophagus. There was some mild distal esophagitis and random biopsies were taken from the esophageal side of the GE junction. The rest of the esophagus was normal. EGD findings: Mild antritis, midbody gastritis, small hiatal hernia and some distal esophagitis Next we repositioned the patient for a colonoscopy. A digital rectal exam was performed and was normal. The colonoscope was inserted and advanced to the cecum. The appendiceal orifice was identified and photographed. The scope was slowly withdrawn over greater than 6 minutes. No abnormalities were found. The scope was retroflexed in the rectum and no abnormalities were seen. Colonoscopy findings: Normal colon Total procedural EBL: 5 mL Scope withdrawal time: 8 minutes Sedation minutes: 25 minutes Post-procedure Disposition: PACU
[2023-05-23 12:43] VITALS: BP 105/69; PULSE 68; RESP 13; TEMP 36.6; O2SAT 96
[2023-05-23 12:48] VITALS: BP 115/71; PULSE 63; RESP 19; O2SAT 98
[2023-05-23 12:53] VITALS: BP 113/72; PULSE 65; RESP 12; TEMP 36.2; O2SAT 100
== END 2023-05-23 13:13 | disposition home or self-care (01) ==
PROVIDERS: PCP Nurse Practitioner Family; Referring Provider Internal Medicine Gastroenterology; Visit Provider Surgery
PROC: 0DJ08ZZ Inspection of Upper Intestinal Tract, Via Natural or Artificial Opening Endoscopic (ICD-10-PCS; CPT 45378; principal; 2023-05-23 11:00)
PROC: 0DJD8ZZ Inspection of Lower Intestinal Tract, Via Natural or Artificial Opening Endoscopic (ICD-10-PCS; CPT 45378; 2023-05-23 11:00)
DX: Z12.11 Encounter for screening for malignant neoplasm of colon (principal); K29.50 Unspecified chronic gastritis without bleeding; K44.9 Diaphragmatic hernia without obstruction or gangrene; K21.00 Gastro-esophageal reflux disease with esophagitis, without bleeding
CPT/HCPCS: 45378; 43239; J2704

== ENCOUNTER → 2024-05-28 08:38 | Outpatient (CLI) | payer OTHER, SELFPAY ==
--- NOTE | 2024-05-28 08:40 | DI.RAD.S_ITS ---
PROCEDURE: XR LUMBAR SPINE MIN 4V INDICATIONS: BACK PAIN TECHNIQUE: 5 views of the lumbar spine were acquired, including bilateral oblique views. COMPARISON: [facility] Outside Film, MR, MR LUMBAR SPINE WITHOUT CONTRAST, 09/06/2023, 9:29. FINDINGS AND IMPRESSION: Overall mild radiographic degenerative changes with disc space height loss, osteophytes, facet arthropathy. No acute displaced fracture or dislocation. No definite pars defects on oblique views, although partially obscured by bowel gas. If there is high concern for further derangement, consider MRI evaluation. Dictated by: Rishi Raines M.D. on 05/28/2024 at 9:07 Approved by: Rishi Raines M.D. on 05/28/2024 at 9:08
== END ==
PROVIDERS: Referring Provider Physical Medicine & Rehabilitation; Visit Provider Physical Medicine & Rehabilitation
DX: M54.9 Dorsalgia, unspecified (principal); M47.816 Spondylosis without myelopathy or radiculopathy, lumbar region
CPT/HCPCS: 72110

== ENCOUNTER 2024-06-14 07:59 | Outpatient (CLI) | payer OTHER, SELFPAY ==
[2024-06-14] VITALS (9 sets, daily range): BP systolic 107–118; BP diastolic 55–80; PULSE 47–61; RESP 12–17; O2SAT 94–98
[2024-06-14] MEDS: MIDAZOLAM 2 MG/2 ML VIAL 1 MG IV ×2 (08:55→08:58)
[2024-06-14] MEDS: BUPIVACAINE 0.5% (PF) 10 ML VIAL 5 ML INJ (09:00)
[2024-06-14] MEDS: LIDOCAINE 1% 20 ML 5 ML INJ (09:01)
[2024-06-14] MEDS: iopamidoL 15 ML VIAL 3 ML INJ (09:01)
--- NOTE | 2024-06-14 09:16 | PM.PROC.IR.1 ---
Date/Time/Diagnoses Date of procedure: 06/14/24 Time of procedure: 09:16 Pre-procedure diagnosis: FACET ARTHROPATHY Post-procedure diagnosis: same Procedure Notes Procedure: 1. BILATERAL L3, L4 AND L5 DIAGNOSTIC MB BLOCKS Indications: Samson is referred for treatment of Bilateral Axial LBP. Physician: Anderson Del Rio Total Fluoroscopy time (seconds): 11 Total sedation minutes: 14 Complications: none Procedure in detail & Post-procedure care: DESCRIPTION OF PROCEDURE Fluoroscopically guided, contrast-controlled bilateral L3, L4 AND L5 medial branch blocks with 0.5cc of 0.5% Marcaine. Following review of allergy and review of potential side effects and complications, including, but not necessarily limited to, infection, allergic reaction, local tissue breakdown, nerve injury, paralysis, stroke and possible , the patient indicated that the patient understood and agreed to proceed. An informed consent document was signed by the patient, witnessed by a nurse, and placed in the patient's chart. After review of previous anaesthesic history and IV conscious sedation the patient was deemed safe to proceed with today's procedure with IV conscious sedation as ASA class II designation. Safety time-out was performed to confirm patient ID, procedure to be performed and site of procedure. IV sedation was accomplished with a combination of 2mg of Versed was administered by the RN after DO order, titrated to patient comfort during the course of the procedure while the patient remained responsive to all verbal commands In the prone position, following sterile prep and drape of the lumbar region, the right L3, L4 AND L5 anatomical location of the medial branch of the dorsal ramus was identified fluoroscopically. Subsequently an anesthetic skin wheal using 1% lidocaine solution was initiated at each of the anatomical spots. Subsequently then a 22-gauge 3.5-inch spinal needle was atraumatically introduced and advanced under fluoroscopic guidance at each of the corresponding sites at the right L3, L4 and L5 MB. After negative aspiration, 0.2cc of Isovue 200 was injected, confirming placement without vascular or intrathecal uptake. Subsequently then 0.5cc of 0.5% Marcaine solution was injected at each of the corresponding sites at the right L3, L4 and L5 medial branch locations. The identical procedure was replicated on the left. The patient tolerated the procedure well without signs or symptoms of complications. The patient tolerated the procedure well without signs or symptoms of complications prior to transfer to the recovery area continued monitoring without incident. Post-procedure, the patient was monitored initiating provocative activities to measure the amount of relief from block of the facetogenic pain. The patient reported a VAS of 7 prior to the procedure and a post-procedure VAS of 1. It has been a pleasure to assist in the diagnostic and therapeutic care of your patient. POST OP INSTRUCTIONS The patient was provided with a Pain Log to complete over the next several hours and subsequent days prior to the patient's follow up with the ordering physician. If the patient has sandwich counter attendant relief to the solution applied, then they may be a candidate for medial branch rhizotomy. The patient is aware, was provided, once again, with a Pain Log and will follow up with the referring physician for review and clinical correlation
== END 2024-06-14 09:33 | disposition home or self-care (01) ==
LOC: RAD 07:59
PROVIDERS: Referring Provider Physical Medicine & Rehabilitation; Visit Provider Physical Medicine & Rehabilitation
DX: M47.816 Spondylosis without myelopathy or radiculopathy, lumbar region (principal)
CPT/HCPCS: 64493; 64494; 99152; J2250

== ENCOUNTER 2024-07-24 07:49 | Outpatient (CLI) | payer OTHER, SELFPAY ==
[2024-07-24] VITALS (11 sets, daily range): BP systolic 108–136; BP diastolic 63–72; PULSE 47–57; RESP 13–18; TEMP 36.2; O2SAT 50–98
[2024-07-24] MEDS: MIDAZOLAM 2 MG/2 ML VIAL IV ×2 (09:09→09:21)
[2024-07-24] MEDS: iopamidoL 15 ML VIAL 3 ML INJ (09:13)
[2024-07-24] MEDS: LIDOCAINE 2% INJ MDV 20ML 5 ML INJ (09:13)
[2024-07-24] MEDS: LIDOCAINE 1% 20 ML 5 ML INJ (09:13)
--- NOTE | 2024-07-24 09:30 | P.PCN_ITS ---
Date/Time/Diagnoses Date of procedure: 07/24/24 Time of procedure: 09:30 Pre-procedure diagnosis: 1. FACET ARTHROPATHY Post-procedure diagnosis: same Procedure Notes Procedure: 1. BILATERAL L3, L4 AND L5 DIAGNOSTIC MB BLOCKS Indications: Samson is referred for treatment of Bilateral Axial LBP. Physician: Anderson Del Rio Total Fluoroscopy time (seconds): 12 Total sedation minutes: 16 Complications: none Procedure in detail & Post-procedure care: DESCRIPTION OF PROCEDURE Fluoroscopically guided, contrast-controlled bilateral L3, L4 and L5 medial branch blocks with 0.5cc of 2% Lidocaine. Following review of allergy and review of potential side effects and complications, including, but not necessarily limited to, infection, allergic reaction, local tissue breakdown, nerve injury, paralysis, stroke and possible , the patient indicated that the patient understood and agreed to proceed. An informed consent document was signed by the patient, witnessed by a nurse, and placed in the patient's chart. After review of previous anaesthesic history and IV conscious sedation the patient was deemed safe to proceed with today's procedure with IV conscious sedation as ASA class II designation. Safety time-out was performed to confirm patient ID, procedure to be performed and site of procedure. IV sedation was accomplished with a combination of 4mg of Versed was administered by the RN after DO order, titrated to patient comfort during the course of the procedure while the patient remained responsive to all verbal commands In the prone position, following sterile prep and drape of the lumbar region, the right L3, L4 and L5 anatomical location of the medial branch of the dorsal ramus was identified fluoroscopically. Subsequently an anesthetic skin wheal using 1% lidocaine solution was initiated at each of the anatomical spots. Subsequently then a 22-gauge 3.5-inch spinal needle was atraumatically introduced and advanced under fluoroscopic guidance at each of the corresponding sites at the right L3, L4 and L5 MB. After negative aspiration, 0.2cc of Isovue 200 was injected, confirming placement without vascular or intrathecal uptake. Subsequently then 0.5cc of 2% Lidocaine solution was injected at each of the corresponding sites at the right L3, L4 and L5 medial branch locations. The identical procedure was replicated on the left. The patient tolerated the procedure well without signs or symptoms of complications. The patient tolerated the procedure well without signs or symptoms of complications prior to transfer to the recovery area continued monitoring without incident. Post-procedure, the patient was monitored initiating provocative activities to measure the amount of relief from block of the facetogenic pain. The patient reported a VAS of 7 prior to the procedure and a post-procedure VAS of 1. It has been a pleasure to assist in the diagnostic and therapeutic care of your patient. POST OP INSTRUCTIONS The patient was provided with a Pain Log to complete over the next several hours and subsequent days prior to the patient's follow up with the ordering physician. If the patient has claim representative relief to the solution applied, then they may be a candidate for medial branch rhizotomy. The patient is aware, was provided, once again, with a Pain Log and will follow up with the referring physician for review and clinical correlation.
== END 2024-07-24 10:00 | disposition home or self-care (01) ==
LOC: RAD 07:51
PROVIDERS: Referring Provider Physical Medicine & Rehabilitation; Visit Provider Physical Medicine & Rehabilitation
DX: M47.816 Spondylosis without myelopathy or radiculopathy, lumbar region (principal)
CPT/HCPCS: 64493; 64494; 99152; J2250

== ENCOUNTER 2024-09-05 12:19 | Emergency (ER) | payer OTHER, SELFPAY ==
[2024-09-05 12:23] VITALS: BP 125/63; PULSE 62; RESP 20; TEMP 37.1; O2SAT 97; BMI 30.8
[2024-09-05] MEDS: OXYCODONE/ACETAMINOPHEN 5/325 TABLET 1 TAB PO (12:49)
--- NOTE | 2024-09-05 13:08 | ED_ITS ---
<Statement entered by Jayesh Pitts, DO - 09/05/24 18:04> Co-sign statement: I was available for consultation during this patient's emergency department visit. This chart is being signed by myself for administrative purposes only. I do not have direct contact with this patient during this visit. They were seen independently by the APC. HPI - Back Pain/Injury General Chief Complaint: Back Pain/Injury Stated Complaint: Heavy lifting post surgery/Back pain Time Seen by Provider: 09/05/24 12:59 Source: patient and family History of Present Illness HPI Narrative: 63-year-old male with past medical history AFib, lumbar back pain, GERD presents to the ED with an acute on chronic exacerbation of right-sided lower back pain. Patient states that his back pain started 2 days ago after working in the garden while he was trying to lift a heavy rock. Patient endorses the pain to be the same as before, which is in the right lower back. Pain does not radiate. No numbness, tingling, weakness. No saddle paresthesias, urinary hesitancy. Patient has little improvement after taking tramadol and cyclobenzaprine at home. Two weeks ago, patient had a lower back nerve ablation with Dr. Harper, and states he was improving until this recent exacerbation. No fever, chills, chest pain, shortness of breath. Related Data Home Medications ?Medication ?Instructions ?Recorded ?Confirmed apixaban 5 mg tablet (Eliquis) 5 mg PO BID 05/23/23 cetirizine 10 mg tablet 10 mg PO DAILY 05/23/2311/22 cyclobenzaprine 10 mg tablet 10 mg PO ONCE PM 05/23/23 09/05/24 lisinopril 10 mg tablet 10 mg PO DAILY 05/23/2311/22 metoprolol succinate 25 mg 25 mg PO DAILY 05/23/2311/22 tablet,extended release 24 hr pantoprazole 40 mg tablet,delayed 40 mg PO BID 4 09/05/24 release prazosin 1 mg capsule 1 mg PO ONCE PM 05/23/2311/22 simvastatin 20 mg tablet 20 mg PO ONCE PM 05/23/23 trazodone 100 mg tablet 100 mg PO ONCE PM 05/23/23 0 09/05/24 lidocaine 5 % topical patch 1 patch topical DAILY 04/3009/05/24 paroxetine HCl 10 mg tablet 10 mg PO DAILY 05/28/24 acetaminophen 325 mg capsule 650 mg PO TID 09/05/24 magnesium aspart,citrate,oxide mg PO DAILY 09/05/24 melatonin 10 mg capsule 10 mg PO BEDTIME 09/05/24 niacin 500 mg tablet 500 mg PO DAILY 09/05/2411/22 omega 1-lfh-qkp-fish oil 1,000 mg 2 cap PO DAILY 09/0509/05/24 (120 mg-180 mg) capsule (Fish Oil) Previous Rx's ?Medication ?Instructions ?Recorded meloxicam 15 mg tablet 15 mg PO QAM #30 tabs tramadol 50 mg tablet 50 mg PO TID PRN pain #30 ta bs 08/13/24 methocarbamol 500 mg tablet 1,500 mg (3 x 500 mg) PO T ID #20 09/05/24 tabs oxycodone-acetaminophen 5 mg-325 1 tab PO Q6H PRN pain #10 tabs 09/05/24 mg tablet (Percocet) Allergies Allergy/AdvReac Type Severity Reaction Status Date / Time No Known Drug Allergies Allergy Verified 08/13/24 13:34 Review of Systems Constitutional Constitutional: Denies chills, Denies fatigue, Denies fever(s), Denies frequent falls, Denies lethargy and Denies weakness Eyes Eyes: Denies change in vision, Denies eye discharge, Denies irritation and Denies loss of vision ENT Ears, Nose, Mouth, and Throat: Denies change in voice, Denies dizziness, Denies neck pain, Denies sore throat and Denies throat swelling Cardiovascular Cardiovascular: Denies chest pain, Denies irregular heart rhythm, Denies lightheadedness, Denies palpitations, Denies dyspnea, Denies dyspnea on exertion and Denies orthopnea Respiratory Respiratory: Denies cough, Denies dyspnea, Denies dyspnea on exertion and Denies wheezing Gastrointestinal Gastrointestinal: Denies abdominal pain, Denies change in bowel habits, Denies diarrhea, Denies nausea and Denies vomiting Musculoskeletal Musculoskeletal: Reports back pain, Denies neck pain and Denies numbness Integumentary/Breasts Skin/Breast: Denies pruritus, Denies erythema, Denies rash and Denies wounds Neurologic Neurologic: Denies behavioral changes, Denies confusion, Denies dizziness, Denies frequent falls, Denies loss of vision, Denies numbness and Denies weakness Psychiatric Psychiatric: Denies anxiety, Denies behavioral changes, Denies confusion, Denies depression, Denies homicidal ideation and Denies suicidal ideation Endocrine Endocrine: Denies fatigue, Denies flushing and Denies palpitations Hematologic/Lymphatic Hematologic/Lymphatic: Denies easy bruising Allergic/Immunologic Allergic/Immunologic: Denies urticaria, Denies throat swelling and Denies wheezing Patient History Medical History Chronic anticoagulation Afib Lumbar radiculopathy Facet arthropathy, lumbar Colonoscopy planned Anxiety Femoral acetabular impingement Tinnitus Hyperlipidemia Opioid use Meralgia paresthetica HTN (hypertension) GERD (gastroesophageal reflux disease) Surgical History History of esophagogastroduodenoscopy (EGD) Social History Smoking Status: Never smoker alcohol intake: never Smoking Status: Never smoker Exam Narrative Exam Narrative: Const General:?cooperative, healthy appearing and comfortable [facility] Head:?normal to inspection Ears:?hearing grossly normal bilaterally Nose:?external nose normal Face and sinus:?normal facial exam and sinuses nontender Mouth:?oral mucosae normal Throat:?posterior oropharynx normal Eyes General:?appearance normal, both eyes and all related structures Neck Neck:?normal visual inspection and no lymphadenopathy noted Resp Effort & Inspection:?normal respiratory effort Auscultation:?clear to auscultation bilaterally Cardio Rate:?regular rate Rhythm:?regular rhythm Musculoskeletal No midline tenderness to palpation. No paraspinal tenderness to palpation. Strength and sensation intact. Neurovascularly intact. Neuro General:?patient alert, patient awake and patient oriented x3 Initial Vital Signs Initial Vital Signs: Vital Signs Temperature 98.7 F 09/05/24 12:23 Pulse Rate 62 09/05/24 12:23 Respiratory Rate 20 09/05/24 12:23 Blood Pressure 125/63 09/05/24 12:23 Pulse Oximetry 97 09/05/24 12:23 Oxygen Delivery Method Room Air 07/09/25 12:23 Course Orders Ordered: ED Orders 09/05/24 13:42 CT abdomen pelvis w con Stat 09/05/24 14:30 CBC Auto Diff [Complete Blood Count AUTO DIFF] Stat CMP [Comprehensive Metabolic Panel] Stat Lipase Stat 09/05/24 16:00 PT [Prothrombin Time INR] Stat PTT [PTT Partial Thromboplastin Robert] Stat Discontinued Medications Hydromorphone HCl (Hydromorphone 1 Mg Inj) 1 mg IV NOW ONE Stop: 09/05/24 16:12 Last Admin: 09/05/24 16:33 Dose: 1 mg Documented By: RB Methocarbamol (Methocarbamol 500 Mg Tablet) 1,500 mg PO NOW ONE Stop: 09/05/24 13:06 Last Admin: 09/05/24 13:18 Dose: 1,500 mg Documented By: EMILIE Oxycodone/Acetaminophen (Oxycodone/Acetaminophen 5/325 Tablet) 1 tab PO NOW ONE Stop: 09/05/24 12:49 Last Admin: 09/05/24 12:49 Dose: 1 tab Documented By: RB Vital Signs Vital signs: Vital Signs - 8 hr 09/05/24 12:23 Temperature 98.7 F Pulse Rate 62 Respiratory Rate 20 Blood Pressure 125/63 Pulse Oximetry 97 Oxygen Delivery Method Room Air MDM - Back Pain/Injury Lab Data 09/05/24 14:30 09/05/24 14:30 Labs: Lab Results 09/05/24 09/05/24 Range/Units 14:30 16:00 WBC 9.2 (4.5-11.0) X10^3/uL RBC 4.93 (4.5-5.9) X10^6/uL Hgb 14.7 (13.5-17.5) g/dL Hct 42.7 (41-53) % MCV 86.7 (80-100) fL MCH 29.9 (26-34) PG MCHC 34.5 (30-36) % RDW 14.0 (11.6-14.8) % Plt Count 265 (150-400) X10^3/uL Neut % (Auto) 57.8 (50-75) % Lymph % (Auto) 32.0 (25-40) % [place] % (Auto) 7.9 (3-14) % Eos % (Auto) 1.7 L (2-4) % Baso % (Auto) 0.6 (0-2) % Neut # (Auto) 5300 (6351-1676) /uL Lymph # (Auto) 2900 (0740-8862) /uL [place] # (Auto) 700 (0-900) /uL Eos # (Auto) 200 (0-450) /uL Baso # (Auto) 100 (0-100) /uL PT 14.4 H (9.4-12.5) SECONDS INR 1.3 (0.9-1.3) APTT 34 (25.1-36.5) SECONDS Sodium 136 L (137-145) mmol/L Potassium 4.4 (3.4-5.1) mmol/L Chloride 104 (98-107) mmol/L Carbon Dioxide 24 (22-32) mmol/L BUN 26 H (9-20) mg/dL Creatinine 1.00 (0.66-1.25) mg/dL Estimated GFR > 60 (>60) mL/min BUN/Creatinine Ratio 26.0 H (6-22) Glucose 98 (70-99) mg/dL Calcium 9.2 (8.4-10.2) mg/dL Total Bilirubin 0.5 (0.2-1.3) mg/dL AST 33 (17-59) IU/L ALT 22 (<50) IU/L Alkaline Phosphatase 40 (38-126) U/L Total Protein 7.3 (6.3-8.2) g/dL Albumin 4.4 (3.5-5.0) g/dL Globulin 2.9 (1.7-4.1) g/dL Albumin/Globulin Ratio 1.5 (1.0-2.8) Lipase 79 (23-300) U/L [facility] Narrative Medical decision making narrative: 63-year-old male with past medical history AFib, lumbar back pain, GERD presents to the ED with an acute on chronic exacerbation of right-sided lower back pain. History and physical exam is reassuring for no midline tenderness, no paraspinal tenderness, no saddle paresthesias or urinary hesitancy, no fever, chills. Patient's symptoms consistent with an acute on chronic exacerbation of the lower back pain. Will control pain with Percocet, methocarbamol. Labs, CT scan, UA were obtained to rule out kidney stone versus other intra- abdominal pathology. Labs, UA without acute findings. CT scan with no acute abnormality identified in the abdomen and pelvis. Patient was given a dose of Dilaudid with good relief. Patient discharged with pain medication and methocarbamol. Recommend follow-up with Dr. Harper as soon as possible. ED return precautions discussed with patient. Patient verbalized understanding. Medical records reviewed: Yes Discharge Plan Departure Patient Disposition: Home Clinical Impression: Back pain Qualifiers: Back pain location: low back pain Chronicity: acute Back pain laterality: right Sciatica presence: without sciatica Qualified Code(s): M54.50 - Low back pain, unspecified Instructions: DI for Low Back Pain Activity Restrictions/Additional Instructions: You were evaluated in the ED today for low back pain. Your labs, urine, CT were normal. It appears that you are having an acute flare of the chronic back pain. It is advised that you continue to rest, take Tylenol, Percocet for pain relief. Please follow-up with Dr. Harper as soon as possible for further evaluation and treatment. Return to the ED if you have worsening symptoms, numbness, tingling, weakness, urinary difficulties. Prescriptions: New oxycodone-acetaminophen [Percocet] 5-325 mg tablet 1 tab PO Q6H PRN (Reason: pain) Qty: 10 0RF methocarbamol 500 mg tablet 1,500 mg PO TID Qty: 20 0RF No Action omega 9-fwk-uzr-fish oil [Fish Oil] 1,000 (120-180) mg capsule 2 cap PO DAILY niacin 500 mg tablet 500 mg PO DAILY acetaminophen 325 mg capsule 650 mg PO TID melatonin 10 mg capsule 10 mg PO BEDTIME magnesium aspart,citrate,oxide 400 mg magnesium capsule PO DAILY cyclobenzaprine 10 mg tablet 10 mg PO ONCE PM cetirizine 10 mg tablet 10 mg PO DAILY lisinopril 10 mg tablet 10 mg PO DAILY metoprolol succinate 25 mg tablet extended release 24 hr 25 mg PO DAILY Eliquis 5 mg tablet 5 mg PO BID pantoprazole 40 mg tablet,delayed release (DR/EC) 40 mg PO BID simvastatin 20 mg tablet 20 mg PO ONCE PM prazosin 1 mg capsule 1 mg PO ONCE PM trazodone 100 mg tablet 100 mg PO ONCE PM paroxetine HCl 10 mg tablet 10 mg PO DAILY lidocaine 5 % adhesive patch,medicated 1 patch topical DAILY meloxicam 15 mg tablet 15 mg PO QAM Qty: 30 2RF tramadol 50 mg tablet 50 mg PO TID PRN (Reason: pain) Qty: 30 1RF Referrals: [facility] [Primary Care Provider, Family Practice] Stand Alone Forms: Patient Portal/API
--- NOTE | 2024-09-05 13:42 | DI.CT.S_ITS ---
PROCEDURE: CT ABDOMEN PELVIS W CON INDICATIONS: back pain TECHNIQUE: After the administration of intravenous contrast, axial sections acquired from the lung bases to the pubic symphysis. Coronal and sagittal reformats were performed. For radiation dose reduction, the following was used: automated exposure control, adjustment of mA and/or kV according to patient size. COMPARISON: [facility], CR, XR LUMBAR SPINE MIN 4V, 05/28/2024, 8:45. FINDINGS: Image quality: Diagnostic. Lower Chest: No significant findings. ABDOMEN: Liver: No solid mass. Gallbladder: No radiopaque gallstones or wall thickening. Biliary ducts: No biliary dilation. Pancreas: No ductal dilation. Spleen: Size is within normal limits. Adrenal Glands: No adrenal nodules. Kidneys and Ureters: No hydronephrosis. No solid mass. No complex renal cystic lesion which requires follow up. Stomach and Bowel: Multiple diverticula are seen in the colon. Normal appendix. Small bowel loops are nondilated. Peritoneum: No abnormal intraperitoneal fluid. No free air. Ventral Wall: No significant ventral hernia. Abdominal Nodes: No retroperitoneal or mesenteric adenopathy by size criteria. Vessels: Aorta and inferior vena cava are normal in size. PELVIS: Pelvic Organs: Unremarkable. Bladder: No bladder wall thickening, accounting for underdistention. Pelvic Nodes: No enlarged lymph nodes. Miscellaneous: No inguinal hernias are seen. Bones: No aggressive osseous abnormality. Degenerative changes in the lumbar spine most notably at the L2-3 level. No surrounding inflammatory changes are seen. IMPRESSION: No acute abnormality identified in the abdomen and pelvis. Approved by: Rob Mari M.D. on 09/05/2024 at 15:56
[2024-09-05 14:56] LABS: Add Manual Diff / Slide Review NO; Hematocrit 42.7 % (41-53); Hemoglobin 14.7 g/dL (13.5-17.5); Lymphocytes Absolute Auto 2900 /uL (1100-4500); Mean Corpuscular HGB Conc 34.5 % (30-36); Mean Corpuscular Hemoglobin 29.9 PG (26-34); Mean Corpuscular Volume 86.7 fL (80-100); Platelet Count 265 X10^3/uL (150-400)
[2024-09-05 15:18] LABS: Alanine Aminotransferase 22 IU/L (<50); Albumin 4.4 g/dL (3.5-5.0); Albumin Globulin Ratio 1.5 (1.0-2.8); Alkaline Phosphatase 40 U/L (38-126); Blood Urea Nitrogen 26 mg/dL (9-20); Calcium 9.2 mg/dL (8.4-10.2); Carbon Dioxide 24 mmol/L (22-32); Chloride 104 mmol/L (98-107); Estimated Glomerular Filt Rate > 60 mL/min (>60); Globulin 2.9 g/dL (1.7-4.1); Glucose 98 mg/dL (70-99); HEMOLYSIS 35 (0-50); Lipase 79 U/L (23-300); Potassium 4.4 mmol/L (3.4-5.1); Sodium 136 mmol/L (137-145); Total Protein 7.3 g/dL (6.3-8.2)
[2024-09-05 16:19] LABS: INR 1.3 (0.9-1.3); Prothrombin Time 14.4 SECONDS (9.4-12.5)
[2024-09-05 16:22] LABS: PTT Partial Thromboplastin Tim 34 SECONDS (25.1-36.5)
[2024-09-05] MEDS: HYDROMORPHONE 1 MG INJ IV (16:33)
[2024-09-05 17:57] VITALS: BP 122/68; PULSE 46; RESP 18; TEMP 36.6; O2SAT 100
== END 2024-09-05 17:58 | disposition home or self-care (01) ==
PROVIDERS: Emergency Provider Student in an Organized Health Care Education/Training Program
DX: M54.50 Low back pain, unspecified (principal)
CPT/HCPCS: 36415; 74177; 80053; 83690; 85025; 85610; 85730; 96374; 99284; J1171; Q9967

== ENCOUNTER 2024-12-02 13:10 | Emergency (ER) | payer OTHER, SELFPAY ==
[2024-12-02 13:17] VITALS: BP 159/74; PULSE 69; RESP 15; TEMP 37; O2SAT 95; BMI 30.4
--- NOTE | 2024-12-02 13:22 | DI.RAD.S_ITS ---
PROCEDURE: XR ANKLE LT MIN 3V INDICATIONS: injury TECHNIQUE: 3 views of the ankle were acquired. COMPARISON: None. FINDINGS: Bones: No fractures or dislocations. Ankle mortise is normally aligned. No suspicious bony lesions. Soft tissues: No tibiotalar joint effusion. Achilles tendon appears normal. IMPRESSION: No acute bony abnormality or significant effusion. Dictated by: Vinh Christianson M.D. on 12/02/2024 at 13:46 Approved by: Vinh Christianson M.D. on 12/02/2024 at 13:47
--- NOTE | 2024-12-02 13:22 | DI.RAD.S_ITS ---
PROCEDURE: XR FOOT LT MIN 3V INDICATIONS: injury TECHNIQUE: 3 views of the foot were acquired. COMPARISON: None. FINDINGS: Bones: No fractures or dislocations. No suspicious bony lesions. Soft tissues: No tibiotalar joint effusion. Achilles tendon appears normal. IMPRESSION: No acute bony abnormality. Dictated by: Vinh Christianson M.D. on 12/02/2024 at 13:46 Approved by: Vinh Christianson M.D. on 12/02/2024 at 13:46
--- NOTE | 2024-12-02 14:57 | DI.RAD.S_ITS ---
PROCEDURE: XR KNEE LT 3V INDICATIONS: 200lb object fell onto patient TECHNIQUE: 3 views of the knee were acquired. COMPARISON: None. FINDINGS: Bones: No fractures or dislocations. No suspicious bony lesions. Patellar enthesophytes. Soft tissues: No joint effusion. No suspicious soft tissue calcifications. IMPRESSION: No acute bony abnormality or significant effusion. Dictated by: Vinh Christianson M.D. on 12/02/2024 at 14:49 Approved by: Vinh Christianson M.D. on 12/02/2024 at 14:50
--- NOTE | 2024-12-02 14:58 | DI.RAD.S_ITS ---
PROCEDURE: XR HAND LT MIN 3V INDICATIONS: 200lb object fell onto patient TECHNIQUE: 3 views of the hand(s) acquired. COMPARISON: None. FINDINGS: Bones: No fractures or dislocations. Carpal bones are normally aligned. No suspicious bony lesions. Soft tissues: No suspicious soft tissue calcifications. IMPRESSION: No acute bony abnormality. Dictated by: Vinh Christianson M.D. on 12/02/2024 at 14:29 Approved by: Vinh Christianson M.D. on 12/02/2024 at 14:29
--- NOTE | 2024-12-02 15:12 | PC.NURSE ---
Patient had 200lb hydraulic machine fall and crush into his left foot/ankle, left knee, and left thumb/hand. Patient has had ice from home on his left ankle. Patient left foot is cold to touch, especially in comparison to RIGHT foot. Cap refill 3-4 seconds of all his toes in left foot. Pulses found using doppler. Removed ice from LEFT foot/ankle. Provider August made aware of patient situation, presentation and coldness and cap refill of left foot. No new orders at this time.
--- NOTE | 2024-12-02 15:40 | DI.RAD.S_ITS ---
PROCEDURE: XR TIBIA FIBULA LT 2V INDICATIONS: pain TECHNIQUE: 2 views of the tibia and fibula were acquired. COMPARISON: [facility], CR, XR ANKLE LT MIN 3V, 12/02/2024, 13:30. [facility], CR, XR FOOT LT MIN 3V, 12/02/2024, 13:30. [facility], CR, XR KNEE LT 3V, 12/02/2024, 14:59. FINDINGS: Bones: No fractures or dislocations. No suspicious bony lesions. Soft tissues: No suspicious soft tissue calcifications or masses. IMPRESSION: No acute bony abnormality. Dictated by: Vinh Christianson M.D. on 12/02/2024 at 15:47 Approved by: Vinh Christianson M.D. on 12/02/2024 at 15:59
--- NOTE | 2024-12-02 15:42 | ED.LOWEXIN ---
HPI - Extremity Injury (Lower) General Chief Complaint: Extremity Injury, Lower Stated Complaint: Dropped hydraulic press on lt lwr extremity Time Seen by Provider: 12/02/24 15:08 Source: patient Mode of arrival: Ambulatory History of Present Illness HPI Narrative: 63-year-old male presents with left lower extremity and left hand pain after a 200 lb hydraulic began to slide out of his truck bed. He went to catch it as it slid onto his left ramirez area. Since then he has had pain of the left knee, ramirez, ankle. He also has left hand pain affecting the thumb area. Related Data Home Medications ?Medication ?Instructions ?Recorded ?Confirmed apixaban 5 mg tablet (Eliquis) 5 mg PO BID 05/23/23 09/05/24 cetirizine 10 mg tablet 10 mg PO DAILY 05/23/23 09/05/24 cyclobenzaprine 10 mg tablet 10 mg PO ONCE PM 05/23/23 09/05/24 lisinopril 10 mg tablet 10 mg PO DAILY 05/23/23 09/05/24 metoprolol succinate 25 mg 25 mg PO DAILY 05/23/23 09/05/24 tablet,extended release 24 hr pantoprazole 40 mg tablet,delayed 40 mg PO BID 05/23/23 09/05/24 release prazosin 1 mg capsule 1 mg PO ONCE PM 05/23/23 09/05/24 simvastatin 20 mg tablet 20 mg PO ONCE PM 05/23/23 09/05/24 trazodone 100 mg tablet 100 mg PO ONCE PM 05/23/23 09/05/24 lidocaine 5 % topical patch 1 patch topical DAILY 05/28/24 09/05/24 paroxetine HCl 10 mg tablet 10 mg PO DAILY 05/28/24 09/05/24 acetaminophen 325 mg capsule 650 mg PO TID 09/05/24 09/05/24 magnesium aspart,citrate,oxide mg PO DAILY 09/05/24 melatonin 10 mg capsule 10 mg PO BEDTIME 09/05/24 09/05/24 niacin 500 mg tablet 500 mg PO DAILY 09/05/24 09/05/24 omega 1-hpp-syr-fish oil 1,000 mg 2 cap PO DAILY 09/05/24 09/05/24 (120 mg-180 mg) capsule (Fish Oil) Previous Rx's ?Medication ?Instructions ?Recorded tramadol 50 mg tablet 50 mg PO TID PRN pain #30 tabs 08/13/24 methocarbamol 500 mg tablet 1,500 mg (3 x 500 mg) PO TID #20 09/05/24 tabs oxycodone-acetaminophen 5 mg-325 1 tab PO Q6H PRN pain #10 tabs 09/05/24 mg tablet (Percocet) meloxicam 15 mg tablet 15 mg PO QAM #30 tabs 11/06/24 oxycodone 5 mg tablet 5 mg PO Q6H PRN pain #14 tabs 12/02/24 Allergies Allergy/AdvReac Type Severity Reaction Status Date / Time No Known Drug Allergies Allergy Verified 08/13/24 13:34 Review of Systems Review of Systems Narrative: Pertinent ROS obtained and negative except as stated in HPI Patient History Medical History Chronic anticoagulation Afib Lumbar radiculopathy Facet arthropathy, lumbar Colonoscopy planned Anxiety Femoral acetabular impingement Tinnitus Hyperlipidemia Opioid use Meralgia paresthetica HTN (hypertension) GERD (gastroesophageal reflux disease) Surgical History History of esophagogastroduodenoscopy (EGD) Social History Smoking Status: Never smoker alcohol intake: never Smoking Status: Never smoker Exam Initial Vital Signs Initial Vital Signs: Vital Signs Temperature 98.6 F 12/02/24 13:17 Pulse Rate 69 12/02/24 13:17 Respiratory Rate 15 12/02/24 13:17 Blood Pressure 159/74 H 12/02/24 13:17 Pulse Oximetry 95 12/02/24 13:17 Oxygen Delivery Method Room Air 12/02/24 13:17 Constitutional: Well appearing, no acute distress Head: NCAT Cardiovascular: normal rate, appears well perfused Pulmonary: normal effort Extremities: Focus exam of the left lower extremity there is hematoma noted just inferior to in overlying the medial malleolus there is tenderness to palpation locally here. There is also some discomfort with palpation over the bony prominences of the metatarsals 1 through 5 but not of the phalanges. There is a 2+ DP pulse and 2nd capillary refill in all the toes. There is Doppler detected PT pulse. There is tenderness over the anterior ramirez and patella. No posterior calf or posterior knee pain. Patient is able to straight leg raise. Focused examination of the left hand and wrist there is tenderness over the 1st metacarpal. There is full range of motion of the hand and wrist. Negative scaphoid tenderness. Sensation intact to light touch of the MUR nerve distribution Skin: warm and dry Neurological: Alert Course Orders Ordered: Discontinued Medications Hydromorphone HCl (Hydromorphone 1 Mg/Ml Syringe) 1 mg IM NOW ONE Stop: 12/02/24 15:40 Last Admin: 12/02/24 15:46 Dose: 1 mg Documented By: EDNA Vital Signs Vital signs: Vital Signs - 8 hr 12/02/24 13:17 12/02/24 16:10 12/02/24 16:11 Temperature 98.6 F Pulse Rate 69 59 L 58 L Respiratory Rate 15 Blood Pressure 159/74 H 135/79 Pulse Oximetry 95 95 94 Oxygen Delivery Method Room Air Room Air 12/02/24 16:11 12/02/24 16:30 12/02/24 16:30 Temperature Pulse Rate 63 Respiratory Rate Blood Pressure 135/79 138/78 Pulse Oximetry 93 Oxygen Delivery Method MDM - Extremity Injury (Lower) MDM Narrative Medical decision making narrative: History and exam as above. Left foot cool to touch on arrival but has palpable pulses and with removal of ice pack to knee/ramirez temp does improve. No apparent neurovascular deficit. XR of affected areas are all negative. Recommended NWB and PCP followup. Pt does get relief with dilaudid and provided with rx for oxycodone to use for pain refractory to OTC and topical meds. Return precautions discussed. Discharge Plan Departure Patient Disposition: Home Clinical Impression: Left leg pain, Hand pain, left, Hematoma Activity Restrictions/Additional Instructions: Fortunately x-ray today did not show any fractures. I am sure that you are going to have pain for several days as a result of soft tissue injury and bruising. As we discussed please do not put any weight on your legs as long as it is painful and try to keep the extremity elevated to reduce pain and swelling. For pain please take ibuprofen 800 mg every 8 hours, acetaminophen 1000 mg every 6 hours. You may find topical therapy such as heat/ice, menthol, lidocaine or diclofenac ointment helpful. You may use oxycodone, on narcotic pain medication, as needed for severe breakthrough pain. I have prescribed some narcotic pain medication. Please remember that narcotic pain medication is addictive, lethal in overdose, causes constipation and sedation. If you use this medication consistently over time, your body will become habituated to it and you will ultimately need increasing doses. In the long run, this medication will actually increase your sensitivity to pain and it does not actually address the underlying cause of pain, it only masks at temporarily. You must not drive or perform other risky behavior while on this medication. You must not combine it with alcohol or other drugs. Please only take the minimum amount needed to treat your pain. Follow up with your family doctor in 7-10 days for recheck. If still painful of the may want to repeat imaging or refer you to physical therapy Prescriptions: New oxycodone 5 mg tablet 5 mg PO Q6H PRN (Reason: pain) Qty: 14 0RF No Action meloxicam 15 mg tablet 15 mg PO QAM Qty: 30 2RF omega 1-ovv-wyx-fish oil [Fish Oil] 1,000 (120-180) mg capsule 2 cap PO DAILY niacin 500 mg tablet 500 mg PO DAILY acetaminophen 325 mg capsule 650 mg PO TID melatonin 10 mg capsule 10 mg PO BEDTIME magnesium aspart,citrate,oxide 400 mg magnesium capsule PO DAILY oxycodone-acetaminophen [Percocet] 5-325 mg tablet 1 tab PO Q6H PRN (Reason: pain) Qty: 10 0RF methocarbamol 500 mg tablet 1,500 mg PO TID Qty: 20 0RF cyclobenzaprine 10 mg tablet 10 mg PO ONCE PM cetirizine 10 mg tablet 10 mg PO DAILY lisinopril 10 mg tablet 10 mg PO DAILY metoprolol succinate 25 mg tablet extended release 24 hr 25 mg PO DAILY Eliquis 5 mg tablet 5 mg PO BID pantoprazole 40 mg tablet,delayed release (DR/EC) 40 mg PO BID simvastatin 20 mg tablet 20 mg PO ONCE PM prazosin 1 mg capsule 1 mg PO ONCE PM trazodone 100 mg tablet 100 mg PO ONCE PM paroxetine HCl 10 mg tablet 10 mg PO DAILY lidocaine 5 % adhesive patch,medicated 1 patch topical DAILY tramadol 50 mg tablet 50 mg PO TID PRN (Reason: pain) Qty: 30 1RF Referrals: [facility] [Primary Care Provider, Family Practice] Stand Alone Forms: Patient Portal/API
[2024-12-02 16:10] VITALS: BP 135/79; PULSE 59; O2SAT 95
[2024-12-02 16:11] VITALS: BP 135/79; PULSE 58; O2SAT 94
[2024-12-02 16:30] VITALS: BP 138/78; PULSE 63; O2SAT 93
[2024-12-02 17:00] VITALS: BP 141/74; PULSE 57; O2SAT 94
== END 2024-12-02 17:22 | disposition home or self-care (01) ==
PROVIDERS: Emergency Provider Student in an Organized Health Care Education/Training Program
DX: S80.12XA Contusion of left lower leg, initial encounter (principal); M79.605 Pain in left leg; M79.642 Pain in left hand; X58.XXXA Exposure to other specified factors, initial encounter
CPT/HCPCS: 73130; 73562; 73590; 73610; 73630; 96372; 99283; 99284; J1171

== ENCOUNTER → 2024-12-13 08:21 | Outpatient (CLI) | payer OTHER, SELFPAY ==
--- NOTE | 2024-12-13 08:22 | DI.CT.S_ITS ---
PROCEDURE: CT HIP RIGHT WITHOUT CON INDICATIONS: impingement of right hip TECHNIQUE: Noncontrast 3 mm axial sections acquired through the bony pelvis, with coronal and sagittal reformatting. COMPARISON: [facility], MR, MR HIP RT WO CON, 01/24/2023, 11:32. FINDINGS: Image quality: Excellent. Bones: No fracture. No dislocation. No right hip joint effusion. Small synovial herniation pit in the anterior superior right femoral head neck junction. Mild joint space narrowing. No significant osteophytosis. Normal alignment of the left hip joint. Chondrocalcinosis of the pubic symphysis without adjacent cystic disease. Mild joint space narrowing small peripheral osteophytosis of the bilateral sacroiliac joints. Accessory left sacroiliac joint, normal variant. Soft tissues: Sigmoid diverticulosis without diverticulitis. Otherwise the pelvic viscera is unremarkable on nondedicated assessment. The urinary bladder is decompressed. Normal subcutaneous fat. Normal muscle bulk for age. IMPRESSION: Right femoral synovial herniation pit, which can be seen with femoral acetabular impingement in the appropriate context. Mild osteoarthrosis of the bilateral sacroiliac joints. Dictated by: Wing Gonzalez M.D. on 12/13/2024 at 13:43 Approved by: Wing Gonzalez M.D. on 12/13/2024 at 13:46
== END ==
LOC: CT 08:22
PROVIDERS: Referring Provider Orthopaedic Surgery; Visit Provider Orthopaedic Surgery
DX: M25.851 Other specified joint disorders, right hip (principal); M46.1 Sacroiliitis, not elsewhere classified
CPT/HCPCS: 73700